=== PATIENT | female | born 1965 | race Two or more races ===

== ENCOUNTER → 2016-10-31 | Outpatient (CLI) | payer BC ==
[~2016-10-31] MED LIST: CETI10TA84 PO; EFF/375 PO; GLC/500 PO
--- NOTE | 2016-11-06 07:47 | PULMONARY FUNCTION TEST ---
CLINICAL DATA: The patient is a 51-year-old female with a height of 59 inches and weight of 136 pounds, referred by Dr. Oseguera for evaluation of asthma. Spirometry pre-bronchodilator was performed. FINDINGS: Mild obstructive airways disease was demonstrated. FVC was 90% of predicted. FEV1 was 87% of predicted. PVA26-90 was 78% of predicted. IMPRESSION: Very mild obstructive airways disease, consistent with a clinical diagnosis of asthma.
== END | disposition home or self-care (01) ==
LOC: C.RC 12:57
PROVIDERS: ATTEND Family Medicine
DX: R07.89 Other chest pain (principal)

== ENCOUNTER 2020-02-16 03:04 | Observation (INO) ==
[2020-02-16] MEDS ORDERED: NITROGLYCERIN SL 0.4 MG/TAB TAB SL STA ×2 (03:22→03:51)
[2020-02-16] MEDS ORDERED: ASPIRIN 81 MG CHEW PO STA (03:22)
--- NOTE | 2020-02-16 03:28 | Emergency Department Note ---
Impression & Plan Left-sided chest pain ED Provider Note Name: MARLIN LEON Age: 54 Sex: F Arrives Via: Walk-In Informant: Patient ED Provider: Kee Weeks MD Chief Complaint: Chest Pain Impression: Left sided chest pain Medical Decision Making: Pleasant 54 yr old female with history DLP, DMII, HTN (though no longer on HTN meds), depression arrives for left chest pain radiating to left shoulder. Initially BP quite elevated. She has slight nonspecific lateral st depressions both inferior and lateral on EKG and initial Trop negative. Noted pleuritic type component thus dimer obtained which was negative. No evidence dissection by exam/work-up. She is stable and feels much improved with SLNTG and BP trended down. Give comorbidities, family history, significant HTN on arrival seems cardiac rule out necessary and hospitalist consulted for further manageme nt. Patient comfortable and stable throughout. Triage/Nursing Notes reviewed by Me Differentials:Cardiac ischemia, aortic dissection, pulmonary embolism, pneumot horax, pneumonia, pericarditis, myocarditis, esophageal rupture, GERD, cholecystitis, pancreatitis, musculoskeletal, as well as other pathologies. Vital Signs: reviewed and remarkable for HTN Interventions: SLNTG x 2, ASA PO Labs:Reviewed and remarkable for no significant abnormalities Imaging:X ray results are stated below per my interpretation: Chest: 1 view: No infiltrate, no effusion, normal cardiac border. EKG:Per My Interpretation: Indication Chest Pain: NSR 79 bpm, qtc 408. No Ectopy. There are non-specific very slight st depression laterally and inferior. Compared to EKG 04/16/02, no significant changes. Cardiac/Tele Monitoring: Cardiac Monitoring: An Order was placed for continuous cardiac monitoring. The monitor shows a rate of 70 with a normal sinus rhythm. Consults:Dr Farrukh BIRCH Hospitalist Plan: Disposition:Hospitalization. Condition: Good History of Present Illness:54 yr old female with history DMII, DLP, HTN arrives for evaluation of chest pain. Notes several hours of left upper shoulder pain radiating to left chest and substernal area. Tight in quality. Nothing makes better nor worse. No inciting incident. Mild associated shortness of breath. No nausea, vomiting, palpitations, diaphoresis, lightheaded, syncope, nor other symptoms. Denies abodminal pain, back pain, weakness, headache, urinary/bowel symptoms, leg swelling, calf pain, bruising, bleeding nor other symptoms. She denies trauma nor injuries. Used ASA 81mg this evening without improvement in pain. Notes father with CABG in his 70s. Patient has no history of cardiac issues. ROS: See above HPI for pertinent positives & negatives. A total of 10 systems reviewed and were otherwise negative. Past Medical History:DMII, DLP, HTN, Depression, Seasonal Allergies Past Surgical History:Wrist Family History:Father CAD Social History:Works for [employer], no drugs, occasional ETOH, no tobacco use, with children Home Medications:Effexor, zyrtec, metformin Allergies:Cephalosporins, macrolides, sulfa, penicillin Vitals:Blood Pressure: 177/108, Pulse 78, RR 18, T 36.6C, O2 100% on RA Physical Exam: GENERAL: Patient is anxious appearing and in minimal distress. EYES: No scleral icterus, unremarkable pupils. ENT: Mucous membranes moist, no nasal congestion. NECK: No masses appreciated, nomeningismus, trachea is midline. RESPIRATORY: No dyspnea. Clear to auscultation and equal bilaterally. No wheeze, no rhonchi. CARDIOVASCULAR: Regular rate and rhythm.No murmurs, rubs, gallops appreciated. GASTROINTESTINAL: Abdomen soft, non-tender, no peritonitis.Bowel sounds positive.No masses appreciated. BACK: No midline tenderness, no CVA tenderness EXTREMITIES: Normal motion all extremities, no cyanosis, no edema. NEUROLOGIC: Alert and oriented, no acute motor or sensory deficits, no focal weakness, cranial nerves grossly intact. SKIN: No rash, no jaundice, no diaphoresis. PSYCH: Appropriate GCS: 15 ED Course: Times/Reassessments: Feeling vastly improved with SLNTG x 2 and BP normalized Kee Weeks MD Past Med/Surg History Medical History (Updated 02/17/20 @ 15:15 by Kee Weeks MD) Prediabetes Social History Smoking Status: Never smoker Hx Alcohol Use: Yes Alcohol type: wine Hx Substance Use: No Preferred Language: Maltese Communication Ability: Effective Heel Stiffener Required: No Beliefs That Will Affect Care: None Current Living Situation: Spouse and Family Feels Safe at Home: Yes Assistive Devices: None Allergies Allergies Allergy/AdvReac Type Severity Reaction Status Date / Time Cephalosporins Allergy Unknown Verified 02/16/20 03:36 Macrolide Antibiotics Allergy Unknown Verified 02/16/20 03:36 Penicillins Allergy Unknown Verified 02/16/20 03:36 Sulfa (Sulfonamide Allergy Unknown Verified 02/16/20 03:36 Antibiotics) Home Meds Home Medications Medication Instructions Recorded Confirmed bupropion HCl 75 mg PO DAILY 02/16/20 02/16/20 metformin 500 mg PO BID 02/16/20 02/16/20 Results & Data (ED) Vital Signs Vital Signs - 24 hr 02/16/20 03:09 Temperature 36.6 C Temperature Source Oral Pulse Rate 78 Respiratory Rate 18 Blood Pressure 177/108 H Blood Pressure Mean 131 Pulse Oximetry 100 Oxygen Delivery Method Room Air Sepsis Recent Fever Within 48 Hours No Sepsis New/Unexplained Change in Mental Status No Sepsis Action Taken by Nursing No Action Required Laboratory Data Result diagrams: 02/16/20 03:30 02/16/20 03:30 Lab Results 02/16/20 02/16/20 02/16/20 Range/Units 03:30 03:30 03:30 WBC 10.05 (4.8-10.8) K/uL RBC 4.90 (4.2-5.4) M/uL Hgb 14.0 (12.0-16.0) g/dL Hct 42.2 (37-47) % MCV 86.1 (80-100) fL MCH 28.6 (25-34) pg MCHC 33.2 (32-36) g/dL RDW Std Deviation 41.2 (36.4-46.3) fL RDW Coeff of Emily 13.0 (11.5-14.5) % Plt Count 370 (130-400) K/uL MPV 9.4 (7.4-10.4) fL Immature Gran % (Auto) 0.2 % Neut % (Auto) 38.6 % Lymph % (Auto) 53.8 % [place] % (Auto) 4.4 % Eos % (Auto) 2.8 % Baso % (Auto) 0.2 % Neut # (Auto) 3.88 (1.4-6.5) K/uL Lymph # (Auto) 5.41 H (1.2-3.4) K/uL [place] # (Auto) 0.44 (0.11-0.59) K/uL Eos # (Auto) 0.28 (0-0.5) K/uL Baso # (Auto) 0.02 (0-0.2) K/uL Immature Gran # (Auto) 0.02 (0.00-0.02) K/uL RBC Morphology Unremarkable D-Dimer 310 (0-500) ug/L FEU Sodium 140 (136-145) mmol/L Potassium 4.0 (3.5-5.1) mmol/L Chloride 108 H (98-107) mmol/L Carbon Dioxide 30 (21-32) mmol/L Anion Gap 2.0 L (3-11) BUN 7 (7-18) mg/dl Creatinine 0.81 (0.6-1.2) mg/dl Est Cr Clr Drug Dosing 63.8 ml/min Est GFR ( Amer) 94.8 Est GFR (Non-Af Amer) 81.8 BUN/Creatinine Ratio 8.4 L (10-20) Glucose 116 H (70-99) mg/dl Calcium 9.1 (8.5-10.1) mg/dl Total Bilirubin 0.4 (0.2-1) mg/dl Direct Bilirubin 0.1 (0-0.2) mg/dl AST 13 L (15-37) U/L ALT 39 (12-78) U/L Alkaline Phosphatase 84 (45-117) U/L Troponin I < 0.015 (0-0.045) ng/ml Total Protein 7.7 (6.4-8.2) gm/dl Albumin 4.1 (3.4-5.0) gm/dl Lipase 136 (73-393) U/L Administered Medications Discontinued Medications Aspirin (Aspirin 81 Mg Chew) 243 mg PO NOW STA Stop: 02/16/20 03:23 Last Admin: 02/16/20 03:44 Dose: 243 mg Documented by: [id number] Aspirin (Aspirin 81 Mg Ectab) [facility] Stop: 03/17/20 08:59 Last Admin: 02/16/20 09:11 Dose: 81 mg Documented by: [id number] Atorvastatin Calcium (Atorvastatin 20 Mg Tab) 20 mg PO DAILY KONRAD Stop: 03/17/20 08:59 Last Admin: 02/16/20 09:14 Dose: Not Given Documented by: [id number] Bupropion HCl (Bupropion Hcl 75 Mg Tablet) 75 mg PO DAILY KONRAD Stop: 03/17/20 08:59 Last Admin: 02/16/20 09:11 Dose: 75 mg Documented by: [id number] Insulin Aspart (Insulin Aspart 100 Units/Ml 3 Ml Pen) 0 units SC ACHS KONRAD Stop: 03/17/20 07:29 Last Admin: 02/16/20 12:44 Dose: 2 units Documented by: [id number] Cosigned by: [id number] Admin: 02/16/20 09:28 Dose: 4 units Documented by: [id number] Cosigned by: [id number] Nitroglycerin (Nitroglycerin Sl 0.4 Mg/Tab Tab) 0.4 mg SL NOW STA Stop: 02/16/20 03:23 Last Admin: 02/16/20 03:45 Dose: 0.4 mg Documented by: [id number] Nitroglycerin (Nitroglycerin Sl 0.4 Mg/Tab Tab) 0.4 mg SL NOW STA Stop: 02/16/20 03:52 Last Admin: 02/16/20 03:52 Dose: 0.4 mg Documented by: [id number] Perflutren Lipid Microsphere (Perflutren Lipid Microsphere (Definity)) 2 ml IV ONCE ONE Stop: 02/16/20 08:31 Last Admin: 02/16/20 08:31 Dose: 2 ml Documented by: [id number] Discharge Plan Visit Data Chief Complaint: Chest Pain Stated Complaint: PAIN LEFT SHOULDER RADIATING DOWN TO CHEST ED Provider: Kee Weeks Discharge Problem: Left-sided chest pain Patient Disposition: Admitted As Inpatient Discharge Instructions Interventions: ED Discharge Assessment Last Done: 02/16/20 06:29
[2020-02-16 03:38] LABS: Hematocrit (blood only) 42.2 % (37-47); Mean Corpuscular Hemoglobin 28.6 pg (25-34); Mean Corpuscular Hgb Conc 33.2 g/dL (32-36); Mean Corpuscular Volume 86.1 fL (80-100); Mean Platelet Volume 9.4 fL (7.4-10.4); Platelet Count 370 K/uL (130-400); RDW Standard Deviation 41.2 fL (36.4-46.3); White Blood Count 10.05 K/uL (4.8-10.8)
[2020-02-16 03:46] LABS: D Dimer 310 ug/L FEU (0-500)
[2020-02-16 03:57] LABS: Alanine Aminotransferase 39 U/L (12-78); Albumin Level 4.1 gm/dl (3.4-5.0); Aspartate Aminotransferase 13 U/L (15-37); BUN Creatinine Ratio 8.4 (10-20); Bilirubin Direct 0.1 mg/dl (0-0.2); Blood Urea Nitrogen 7 mg/dl (7-18); Calcium 9.1 mg/dl (8.5-10.1); Carbon Dioxide 30 mmol/L (21-32); Creatinine Clr Calc Pharmacy 63.8 ml/min; Est GFR (African American) 94.8; Est GFR (Non-African American) 81.8; Glucose 116 mg/dl (70-99); Lipase 136 U/L (73-393)
[2020-02-16 03:59] LABS: Chloride 108 mmol/L (98-107); Sodium 140 mmol/L (136-145)
[2020-02-16 04:03] LABS: Alkaline Phosphatase 84 U/L (45-117); Bilirubin,Total 0.4 mg/dl (0.2-1); Total Protein 7.7 gm/dl (6.4-8.2); Troponin I < 0.015 ng/ml (0-0.045)
[2020-02-16 04:09] LABS: Basophils # (auto) 0.02 K/uL (0-0.2); Basophils % (auto) 0.2 %; Eosinophils # (auto) 0.28 K/uL (0-0.5); Eosinophils % (auto) 2.8 %; Immature Granulocytes # (auto) 0.02 K/uL (0.00-0.02); Immature Granulocytes % (auto) 0.2 %; Lymphocytes # (auto) 5.41 K/uL (1.2-3.4); Lymphocytes % (auto) 53.8 %; Monocytes # (auto) 0.44 K/uL (0.11-0.59); Monocytes % (auto) 4.4 %; Neutrophils # (auto) 3.88 K/uL (1.4-6.5); Neutrophils % (auto) 38.6 %; RBC Morphology Unremarkable
--- NOTE | 2020-02-16 05:26 | History & Physical Report ---
Date of Service February 16, 2020 Assessment & Plan (1) Left-sided chest pain: Left-sided chest pain relieved by sublingual nitroglycerin x2- The patient will be admitted to telemetry for serial cardiac enzymes, serial EKG's, cardiac rhythm monitoring and a 2-D echocardiogram with Dopplers. Aspirin 81 mg every morning Nitroglycerin sublingual every 5 minutes x3 as needed chest pain Patient has not had any history of echoes or stress testing. Present on Admission?: Yes (2) Prediabetes: Hold metformin. Place him on Accu-Cheks before meals and at bedtime with NovoLog coverage per scale Present on Admission?: Yes History of Present Illness Chief Complaint: The patient presents to the emergency department with left upper chest pain that began around 930 this evening while at rest, persisted until midnight, when it started to go down more toward the center of her chest. Primary Care Provider: Rashid Arias The patient is a 54-year-old female with a past medical history including hyperlipidemia, prediabetes and anxiety. She presents with symptoms as noted above. Her chest pain was ultimately relieved by 2 sublingual articulations given in the emergency department. She had no previous episodes of chest discomfort. She has not had any recent travels or sick exposures. She does have a history in her family of her father having a CABG in his 70s. Allergies Allergy/AdvReac Type Severity Reaction Status Date / Time Cephalosporins Allergy Unknown Verified 02/16/20 03:36 Macrolide Antibiotics Allergy Unknown Verified 02/16/20 03:36 Penicillins Allergy Unknown Verified 02/16/20 03:36 Sulfa (Sulfonamide Allergy Unknown Verified 02/16/20 03:36 Antibiotics) Home Medications Home Medications Medication Instructions Recorded Confirmed Type bupropion HCl 75 mg PO DAILY 02/16/20 02/16/20 History metformin 500 mg PO BID 02/16/20 02/16/20 History Past Med/Surg History Medical History (Updated 02/16/20 @ 05:23 by Suhas Chadwick MD) Prediabetes Social History Smoking Status: Never smoker Preferred Language: Swedish Feels Safe at Home: Yes Review of Systems Review of Systems: The patient denies palpitations, shortness of breath, dyspnea on exertion, cough, lower extremity swelling, sore throat, fevers, chills, sweats, weight change, fatigue, nausea, vomiting, diarrhea , constipation, abdominal pain, pelvic pain, blood in urine or stool, dysuria, urinary frequency or urgency, lightheadedness, dizziness, headache, memory loss, loss of consciousness, rash, abnormal bruising or bleeding, imbalance, focal or generalized weakness, numbness or tingling in arms or legs, generalized arthralgias or myalgias, back or neck pain, or night sweats. The review of systems is otherwise negative other than for that already noted above, and at least 10 systems have been reviewed. Physical Exam Physical Exam: The patient is awake, alert and oriented 3, well developed and well nourished, normocephalic and atraumatic, lying in bed and in no acute distress. HEENT--PERRL, EOMI, mucous membranes and oropharynx normal. Neck--supple. No JVD. No bruits. Thyroid normal, trachea midline, no adenopathy. Heart--normal S1 and S2. No murmurs, rubs or gallops. Lungs--clear bilaterally, no respiratory distress, no accessory muscle use. Abdomen--normal bowel sounds and soft. Nontender. Nondistended. Extremities--no cyanosis or clubbing. No edema. Dermatologic--normal skin turgor, normal color, no abnormal lymph nodes, no rash. Neurologic--cranial nerves II through XII grossly intact. Rheumatologic--normal range of motion. Psychiatric--normal affect. Results & Data Results & Data ([facility]) Vital Signs (Past 12 Hours) Vital Signs Temp Pulse Pulse Resp BP BP Pulse Ox 02/16/20 03:50 82 145/86 H 02/16/20 03:45 88 182/102 H 99 02/16/20 03:09 97.9 F 78 18 177/108 H 100 Laboratory Results Laboratory Results WBC 10.05 K/uL (4.8-10.8) 02/16/20 03:30 RBC 4.90 M/uL (4.2-5.4) 02/16/20 03:30 Hgb 14.0 g/dL (12.0-16.0) 02/16/20 03:30 Hct 42.2 % (37-47) 02/16/20 03:30 MCV 86.1 fL (80-100) 02/16/20 03:30 MCH 28.6 pg (25-34) 02/16/20 03:30 MCHC 33.2 g/dL (32-36) 02/16/20 03:30 RDW Std Deviation 41.2 fL (36.4-46.3) 02/16/20 03:30 RDW Coeff of Emily 13.0 % (11.5-14.5) 02/16/20 03:30 Plt Count 370 K/uL (130-400) 02/16/20 03:30 MPV 9.4 fL (7.4-10.4) 02/16/20 03:30 Immature Gran % (Auto) 0.2 % 02/16/20 03:30 Neut % (Auto) 38.6 % 02/16/20 03:30 Lymph % (Auto) 53.8 % 02/16/20 03:30 [place] % (Auto) 4.4 % 02/16/20 03:30 Eos % (Auto) 2.8 % 02/16/20 03:30 Baso % (Auto) 0.2 % 02/16/20 03:30 Neut # (Auto) 3.88 K/uL (1.4-6.5) 02/16/20 03:30 Lymph # (Auto) 5.41 K/uL (1.2-3.4) H 02/16/20 03:30 [place] # (Auto) 0.44 K/uL (0.11-0.59) 02/16/20 03:30 Eos # (Auto) 0.28 K/uL (0-0.5) 02/16/20 03:30 Baso # (Auto) 0.02 K/uL (0-0.2) 02/16/20 03:30 Immature Gran # (Auto) 0.02 K/uL (0.00-0.02) 02/16/20 03:30 RBC Morphology Unremarkable 02/16/20 03:30 D-Dimer 310 ug/L FEU (0-500) 02/16/20 03:30 Sodium 140 mmol/L (136-145) 02/16/20 03:30 Potassium 4.0 mmol/L (3.5-5.1) 02/16/20 03:30 Chloride 108 mmol/L (98-107) H 02/16/20 03:30 Carbon Dioxide 30 mmol/L (21-32) 02/16/20 03:30 Anion Gap 2.0 (3-11) L 02/16/20 03:30 BUN 7 mg/dl (7-18) 02/16/20 03:30 Creatinine 0.81 mg/dl (0.6-1.2) 02/16/20 03:30 Est Cr Clr Drug Dosing 63.8 ml/min 02/16/20 03:30 Est GFR ( Amer) 94.8 02/16/20 03:30 Est GFR (Non-Af Amer) 81.8 02/16/20 03:30 BUN/Creatinine Ratio 8.4 (10-20) L 02/16/20 03:30 Glucose 116 mg/dl (70-99) H 02/16/20 03:30 Calcium 9.1 mg/dl (8.5-10.1) 02/16/20 03:30 Total Bilirubin 0.4 mg/dl (0.2-1) 02/16/20 03:30 Direct Bilirubin 0.1 mg/dl (0-0.2) 02/16/20 03:30 AST 13 U/L (15-37) L 02/16/20 03:30 ALT 39 U/L (12-78) 02/16/20 03:30 Alkaline Phosphatase 84 U/L (45-117) 02/16/20 03:30 Troponin I < 0.015 ng/ml (0-0.045) 02/16/20 03:30 Total Protein 7.7 gm/dl (6.4-8.2) 02/16/20 03:30 Albumin 4.1 gm/dl (3.4-5.0) 02/16/20 03:30 Lipase 136 U/L (73-393) 02/16/20 03:30 Code Status & VTE Plan Code Status Full code VTE Prophylaxis Plan VTE Prophylaxis will be ordered: Yes PG Care Time/CCT Total # of Minutes Spent Total Time Spent with Patient: Total time spent is greater than 50% in coordination of care (as documented) at patient's floor/unit and/or counseling patient: Coding Level of Care Code 96263 OBS Care - Level 3 Diagnoses Left-sided chest pain R07.9 Prediabetes R73.03
[2020-02-16] MEDS ORDERED: GLUCOSE 10 TABS/TUBE PO PRN (06:50)
[2020-02-16] MEDS ORDERED: ACETAMINOPHEN 325 MG TAB PO PRN (06:50)
[2020-02-16] MEDS ORDERED: GLUCAGON FOR INJ 1 MG VIAL SQ PRN (06:50)
[2020-02-16] MEDS ORDERED: ALUMINUM/MAGNESIUM SUSP 30 ML UDC PO PRN (06:50)
[2020-02-16] MEDS ORDERED: DEXTROSE 50% 50 ML SYRINGE IV PRN (06:50)
[2020-02-16] MEDS ORDERED: ONDANSETRON INJ 2 MG/ML 2 ML VIAL IV PRN (06:50)
[2020-02-16] MEDS ORDERED: GLUCOSE 40% GEL 15 GM TUBE PO PRN (06:50)
[2020-02-16] MEDS ORDERED: CARBOHYDRATES FOR HYPOGLYCEMIA PO PRN (06:50)
[2020-02-16] MEDS ORDERED: MAGNESIUM HYDROXIDE SUSP 30 ML UDC PO PRN (06:50)
--- NOTE | 2020-02-16 07:27 | XRay Report ---
SINGLE VIEW CHEST CLINICAL HISTORY: Atypical chest pain. FINDINGS: An AP, portable, upright chest radiograph is obtained. No prior studies are available for c omparison at the time of dictation. The cardiomediastinal silhouette is unremarkable. The lungs and pleural spaces are clear. No pneumothorax is seen. The bony thorax is grossly intact. IMPRESSION: No active disease in the chest. ACT 112: Negative or not required by law. Electronically signed by: Hilario Stiles M.D. 02/16/2020 7:26 AM
--- NOTE | 2020-02-16 07:27 | Hospitalist Progress Note ---
Date of Service February 16, 2020 Assessment & Plan Admission and Anticipated Discharge Date Admission Date: February 16, 2020 Results & Data Results & Data ([facility]) Vital Signs (Past 12 Hours) Vital Signs Temp Pulse Pulse Resp BP BP Pulse Ox 02/16/20 06:42 36.9 C 69 16 153/87 H 98 02/16/20 05:04 80 18 157/79 H 99 02/16/20 03:50 82 145/86 H 02/16/20 03:45 88 182/102 H 99 02/16/20 03:09 36.6 C 78 18 177/108 H 100
[2020-02-16] MEDS ORDERED: PERFLUTREN LIPID MICROSPHERE (DEFINITY) IV ONE (08:30)
[2020-02-16] MEDS ORDERED: buPROPion HCl 75 MG TABLET PO SCH (09:00)
[2020-02-16] MEDS ORDERED: ATORVASTATIN 20 MG TAB PO SCH (09:00)
[2020-02-16] MEDS ORDERED: ASPIRIN 81 MG ECTAB PO SCH (09:00)
[2020-02-16] MEDS: INSULIN ASPART 100 UNITS/ML 3 ML PEN SC SCH ×2 (09:28→12:44)
[2020-02-16 09:44] LABS: Chol HDL Ratio 4; Cholesterol 185 mg/dl (0-200); HDL Cholesterol 51 mg/dl; LDL Cholesterol Calculated 119 mg/dl; Triglycerides 77 mg/dl (0-150); VLDL Cholesterol 15 mg/dl
--- NOTE | 2020-02-16 11:23 | XCELERA ---
[id number] \\[id number]___[id number]
--- NOTE | 2020-02-16 12:55 | XCELERA ---
[id number] \\[id number]___[id number]
--- NOTE | 2020-02-16 12:59 | Medical Student Progress Note ---
Date of Service February 16, 2020 Assessment & Plan (1) Left-sided chest pain: Pt's chest pain has subsided to a 1/10 today. Pt has a JEFFREY score of 2-3 with an 8% to 13% risk at 14 days of all-cause mortality, new or recurrent MN, or severe recurrent ischemia requiring urgent revascularization. Pt also has a family history hypertension and stroke (mother) and cardiac bypass surgery (father). ECG was unremarkable as well as chest x-ray. Pt had a D-dimer of 310. Due to the presenting symptom of chest pain and JEFFREY score, pt will undergo stress testing. Pt will be reevaluated following stress testing results and monitored for worsening symptoms. Present on Admission?: Yes Admission and Anticipated Discharge Date Admission Date: February 16, 2020 Supervising Attestation Subjective 54 yr old female with history prediabetes, hypercholesteremia, hypertension arrives for evaluation of chest pain. At 9:30 PM last night pt had pain in left shoulder and neck. Pt didnt think anything of it. Applied heat to it to see if that would help but it didnt. Noticed around midnight the pain was radiating down to chest. Pain was a 4/10 when she came in. Constant, dull, throbbing pain. Pt states nothing there are no aggravating or relieving factors. Pain was accompanied by shortness of breath when the pain radiated down to chest. Took a couple of hours then decided to come in. At the ER was given 3 baby aspirin (took one prior to coming in). Gave her 2 nitroglycerin tablets. Eduin blood and did an EKG. Said blood pressure was high. Family history of cardiac problems and high blood pressure (mom also had a stroke). Dad had a cardiac bypass. Pt had statins until a week and a half ago due to liver pain and hyperglycemia. Takes blood glucose twice a week. BP has been running higher than usual. Pt had an ultrasound done with the results pending. Has a Holter monitor on currently. Review of Systems Constitutional: no fever Respiratory: No shortness of breath, still feels pain on inhalation but not as bad as before. Cardiovascular: Additional Comments: Chest pain is retrosternal and a 1/10 today. Gastrointestinal: Denies abdominal pain, nausea, vomiting, constipation, diarrhea Genitourinary: Denies pain with urination Musculoskeletal: Denies weakness Neurologic: Denies numbness or tingling Physical Exam Constitutional: no acute distress Eyes: PERRL, conjunctivae normal, anicteric sclerae Respiratory: normal respiratory effort, lungs clear to auscultation Cardiovascular: RRR, no murmur, no edema Vessels: no carotid bruit Gastrointestinal (Abdomen): normal bowel sounds, soft, nontender, no hepatosplenomegaly Neurologic: patellar DTR's 2+ bilat, sensation intact Results & Data ([facility]) Vital Signs (Past 12 Hours) Vital Signs Temp Pulse Pulse Resp BP BP Pulse Ox 02/16/20 08:00 69 02/16/20 06:42 36.9 C 69 16 153/87 H 98 02/16/20 05:04 80 18 157/79 H 99 02/16/20 03:50 82 145/86 H 02/16/20 03:45 88 182/102 H 99 02/16/20 03:09 36.6 C 78 18 177/108 H 100
--- NOTE | 2020-02-16 13:44 | Electrocardiogram Report ---
Test Reason : Blood Pressure : / mmHG Vent. Rate : 079 BPM Atrial Rate : 079 BPM P-R Int : 138 ms QRS Dur : 078 ms QT Int : 356 ms P-R-T Axes : 047 023 032 degrees QTc Int : 408 ms Normal sinus rhythm Normal ECG When compared with ECG of 16-APR-2002 04:58, No significant change was found Confirmed by Nik Berrios ([id number]) on 02/16/2020 1:43:50 PM Referred By: REFERRED SELF Confirmed By:Nik Berrios
--- NOTE | 2020-02-16 13:59 | Discharge Summary ---
Date of Service February 16, 2020 Admission HPI Per Admitting Provider The patient is a 54-year-old female with a past medical history including hyperlipidemia, prediabetes and anxiety. She presents with symptoms as noted above. Her chest pain was ultimately relieved by 2 sublingual articulations given in the emergency department. She had no previous episodes of chest discomfort. She has not had any recent travels or sick exposures. She does have a history in her family of her father having a CABG in his 70s. Admission Exam Per Admitting Provider The patient is awake, alert and oriented 3, well developed and well nourished, normocephalic and atraumatic, lying in bed and in no acute distress. HEENT--PERRL, EOMI, mucous membranes and oropharynx normal. Neck--supple. No JVD. No bruits. Thyroid normal, trachea midline, no adenopathy. Heart--normal S1 and S2. No murmurs, rubs or gallops. Lungs--clear bilaterally, no respiratory distress, no accessory muscle use. Abdomen--normal bowel sounds and soft. Nontender. Nondistended. Extremities--no cyanosis or clubbing. No edema. Dermatologic--normal skin turgor, normal color, no abnormal lymph nodes, no rash. Neurologic--cranial nerves II through XII grossly intact. Rheumatologic--normal range of motion. Psychiatric--normal affect. Principal Diagnosis Left-sided chest pain Discharge Exam Constitutional WD/WN, vitals as above no acute distress Respiratory normal respiratory effort, lungs clear to auscultation Cardiovascular RRR, no murmur, no edema Heart Sounds: normal S1 and normal S2 Gastrointestinal (Abdomen) normal bowel sounds, soft, nontender, no hepatosplenomegaly Skin no rashes, warm and dry Psychiatric A+Ox3, euthymic affect Discharge Data Allergies Allergy/AdvReac Type Severity Reaction Status Date / Time Cephalosporins Allergy Unknown Verified 02/16/20 03:36 Macrolide Antibiotics Allergy Unknown Verified 02/16/20 03:36 Penicillins Allergy Unknown Verified 02/16/20 03:36 Sulfa (Sulfonamide Allergy Unknown Verified 02/16/20 03:36 Antibiotics) Consultations 02/16/20 04:30 ED Decision to Admit Stat Hospital Course (1) Left-sided chest pain: The patient is a 54-year-old female with a past medical history including hyperlipidemia, prediabetes and anxiety. She presents with symptoms as noted above. Her chest pain was ultimately relieved by 2 sublingual articulations given in the emergency department. She had no previous episodes of chest discomfort. She had not had any recent travels or sick exposures. Left-sided chest pain - Left-sided chest pain relieved by sublingual nitroglycerin x2 in ED - EKG: Normal sinus rhythm - CXR: No active disease in the chest - Serial troponins negative x3 - Echo: Normal LV systolic funtion, EF 60-65%, No regional wall motion abnormalities - Exercise stress echo: Normal at 7 METS and peak HR greater than 100% predicted max - Per patient, she had stopped taking home atorvastatin due to elevated blood sugars - Will follow up with PCP tomorrow as she previously had appt set up Prediabetes - Held metformin - On ISS protocol during admission Anxiety - Continued home bupropion 75mg PO daily FENGI: Heart healthy Dispo: Home Code: Full code (2) Prediabetes: Total Time Total Time Spent Total Time Spent (In Minutes): see Attending attestation Discharge Plan Discharge Items Patient Disposition: Home - Self-Care Reason For Visit: CHEST PAIN RLIEVED [place] NTGSL Discharge Diagnosis: chest pain Activity: Per Instructions section Non-emergency contact: Primary Care Provider Call non-emergency contact if: your symptoms worsen, your pain is not controlled and your pain is worsening Follow-up/Referrals: Rashid Arias [Primary Care Provider] - 02/17/20 2:50 pm (Please follow up with Dr. Arias on Sunday02/17/2020 at 2:50 pm. Please arrive to the office 15 minutes early for your appointment. If you are unable to keep this appointment, please call the office to reschedule at [phone].) Diet: Heart Healthy Addtl Attending Provider Instructions: You came to [facility] due to chest pain. You received nitroglycerin in the emergency room, which relieved your pain. Afterwards you were admitted for further evaluation. You had a normal EKG as well as a normal stress test. As such, you were found to be fit for discharge. Please follow up with your primary care provider for further discussion of your concerns. Pending Studies at Discharge: No Stand-Alone Forms: [employer], Smoking Cessation Medications and DC Order Prescriptions: Continued metformin 500 mg tablet 500 mg PO BID RF: 0 bupropion HCl 75 mg tablet 75 mg PO DAILY RF: 0 Discharge Orders: Discharge Order (Routine); Ordered 02/16/20 Ordered By: Sunny Ortiz/Other Patient Handouts: Managing Type 2 Diabetes, ED Chest Pain, Uncertain Cause Admission Data Admit Date/Time: 02/16/20 05:14 Attending Provider: Etta Mahoney Admit Provider: Suhas Chadwick Primary Care Provider: Rashid Arias Other Providers: Suhas Chadwick Other Interventions: Discharge Summary Assessment (RN) Last Done: 02/16/20 15:01 Supervising Physician Co-Signing Physician Notes Resident Physician Supervision Note: I independently interviewed and examined the patient and verified the mendez history and physical, reviewed labs and image studies, discussed the case with the resident Dr. Chairez and agree with the findings and care plan. Resident Activity Tracking Resident Involvement: Resident Care Provided Care Provided: Adult Hospital Medicine
== END 2020-02-16 15:35 | disposition home or self-care (01) ==
LOC: ED 03:04 → 2S 03:04 → SUATTDRO 05:14 → 2S 06:29